=== PATIENT | male | born 1995 | race Caucasian/White ===

== ENCOUNTER 2023-12-14 08:53 | Emergency (ER) | payer OTHER, SELFPAY ==
--- NOTE | 2023-12-14 08:55 | ED.URI ---
HPI - URI/Sore Throat General Chief Complaint: Upper Respiratory Infection Stated Complaint: Congestion,Cough,Sore Throat Time Seen by Provider: 12/14/23 08:55 Source: patient Mode of arrival: ambulatory Limitations: no limitations History of Present Illness HPI Narrative: Rufino is a 27-year-old male patient presenting to the clinic today with complaints of congestion, cough, and sore throat x4 weeks. He reports he has had coughing congestion, headache, sinus pressure, and yellow nasal drainage for the past 4 weeks off and on. No fevers or chills. Denies any shortness of breath. MD elicited complaint: sore throat and nasal congestion Related Data Home Medications Medication Instructions Recorded Confirmed dextroamphetamine-amphetamine 15 15 mg BID 12/14/23 12/14/23 mg tablet Allergies Allergy/AdvReac Type Severity Reaction Status Date / Time No Known Allergies Allergy Unverified 06/25/13 16:45 Review of Systems Review of Systems: Pertinent positives per HPI. Patient denies any fever, chills, rash, headache, visual changes, dizziness,shortness of breath, chest pain, palpitations, nausea, vomiting, diarrhea, constipation, abdominal pain, or any urinary issues. PMFSH Comments At the time of my signature, I reviewed and agree with the nursing past medical, surgical, social, and family history. There is no relevant family history pertinent to the patient complaint. Exam Narrative: General: Well-developed, well nourished, in no apparent distress Head: Normocephalic, atraumatic Eyes: Pupils equally round and reactive to light bilaterally, EOM intact, sclera and conjunctive clear, no discharge, lids normal Ears: TMs intact and clear, ear canals clear, no drainage, grossly hearing normal. Nose: Nares patent, yellow nasal discharge, moderate inflammation, maxilla sinus tenderness. Mouth: Oral pharynx red without lesions or masses, good dentition, MMM. Postnasal drip Neck: Supple, trachea midline, no enlargement of anterior or posterior cervical nodes, no thyroid masses or goiter palpable. Cardio: Regular rate and rhythm, s1 and s2 normal, no murmur appreciated. Resp: Clear to auscultation bilaterally, no rhonchi, rales, wheezing or rubs Course Course Emergency Course: Portions of this record may have been created with voice recognition software. Level of Care: Express Care Visit Vital Signs Vital signs: Vital signs reviewed MDM - URI/Sore Throat MDM Narrative Medical decision making narrative: At the time of visit patient is resting comfortably on the exam table. Patient appears to be nontoxic. Plan: I suspect patient has acute rhinosinusitis. Prescription for prednisone and Augmentin was sent to the pharmacy. Supportive measures were discussed with the patient and they voiced understanding discharge instructions and agrees to treatment plan. Return precautions reviewed Differential Diagnosis Differential diagnosis: Likely upper respiratory infection, otitis media, sinusitis, viral infection, bronchitis, influenza, pharyngitis and other (COVID) Discharge Plan Discharge Clinical Impression: Acute rhinosinusitis Patient Disposition: Home, Self-Care Condition: Stable Instructions: Antibiotic Form, Rhinosinusitis (ED) Additional Instructions: Take prescription medications only as prescribed Increase fluids and stay well hydrated Tylenol/motrin for pain/fever Flonase and OTC antihistamines as directed Vicks vapor rub to open sinuses Sinus rinses for congestion Cepacol spray, cough drops, throat lozenges, warm tea with honey/lemon, gargle salt water to soothe throat BRAT diet for diarrhea Clear liquids x 24 hours then advance as tolerated for nausea/vomiting Go to the ED if you develop a worsening in your condition- high fever not controlled by Tylenol or Motrin, dehydration, weakness, lethargy, shortness of breath, or chest pain. Follow up with your PCP in
[2023-12-14 09:01] VITALS: BP 129/89; PULSE 74; RESP 16; TEMP 36.9; O2SAT 100
== END 2023-12-14 09:28 | disposition home or self-care (01) ==
LOC: EXPGOSH 08:58
PROVIDERS: Emergency Provider Nurse Practitioner Family; PCP Family Medicine
DX: J01.90 Acute sinusitis, unspecified (principal); F90.9 Attention-deficit hyperactivity disorder, unspecified type
CPT/HCPCS: 99213; G0463

== ENCOUNTER 2025-01-24 08:10 | Emergency (ER) | payer OTHER, SELFPAY ==
[2025-01-24 08:25] VITALS: BP 132/82; PULSE 79; RESP 16; TEMP 36.6; O2SAT 100
--- NOTE | 2025-01-24 08:40 | ED_ITS ---
HPI - General Adult General Chief complaint: Upper Respiratory Infection Stated complaint: Strep Symptoms/SOB Source: patient Mode of arrival: ambulatory Limitations: no limitations History of Present Illness HPI narrative: Patient presents for evaluation of sick symptoms for the last 4 days. Symptoms include sinus congestion, mucopurulent discharge from the nares, sore throat, fever, cough, and SOB. No chills, nausea, vomiting or diarrhea. He took tylenol for his symptoms. He does not smoke. No recent sick contacts to his knowledge. Related Data Home Medications ?Medication ?Instructions ?Recorded ?Confirmed ?Last Taken ?Type semaglutide (weight loss) 1.7 mg subcut 01/24/25 Unknown History mg/0.75 mL subcutaneous pen injector (Wegovy) sildenafil 100 mg tablet mg 01/24/25 Unknown History Allergies Allergy/AdvReac Type Severity Reaction Status Date / Time No Known Allergies Allergy Verified 01/24/25 08:28 Review of Systems Review of Systems: CONSTITUTIONAL: Reports fever. Denies chills, or sweats. EYES: Denies visual changes, redness, or discharge. ENT: Reports sinus congestion, mucopurulent discharge from nares and sore throat CARDIOVASCULAR: Denies chest pain, palpitations, or edema. RESPIRATORY: Reports cough and SOB GASTROINTESTINAL: Denies abdominal pain, nausea, vomiting, or diarrhea. GENITOURINARY: Denies dysuria or hematuria. SKIN: Denies rash or itching. MUSCULOSKELETAL: Denies back pain, joint pain, or myalgia. NEUROLOGIC: Denies headache, numbness, dizziness, or weakness. PSYCHIATRIC: Denies anxiety or depression. [facility] Past Medical History Medical History No pertinent past medical history Surgical History Surgical History No pertinent past surgical history Family History Family History (Updated 01/24/25 @ 08:54 by ALLAN Schwarz, DILIP) Mother Family history non-contributory Social History Social History Smoking status: Never smoker Substance use: never Gender identity (if verbalized by the patient): Male Spiritual care concerns: No Exam Narrative: GENERAL: Well-appearing, well-nourished, and in no acute distress. HEAD: Normocephalic, atraumatic. EYES: PERRLA and EOMI. ENT: Nares clear, no rhinorrhea or epistaxis. Mucous membranes moist. Oropharynx without tonsillar hypertrophy exudate or other lesions. Bilateral TMs pearly dumas nonbulging NECK: Supple. No adenopathy or masses. No carotid bruits or JVD CHEST: Clear to auscultation. No respiratory distress. No wheezes rales or rhonchi HEART: Regular rate and rhythm. No murmur heard. Normal peripheral pulses. ABDOMEN: Soft, nontender, nondistended, normal active bowel sounds. EXTREMITIES: Normal range of motion. No edema. SKIN: Warm, dry, no rash. NEURO: No focal deficits. Alert and oriented x3. PSYCH: Normal mood and affect. Course Course Emergency Course: this is a 29-year-old male who presented for evaluation of sick symptoms. COVID, influenza, strep were all negative. He meets criteria for bacterial sinusitis based upon presence of mucopurulent discharge and fever. Will dc with augmentin. Follow-up with primary provider. Go to the ER for worsening symptoms. Pt in agreement with plan of care. Level of Care: Express Care Visit Vital Signs Vital signs: Vital Signs Temperature 36.6 C 01/24/25 08:25 Pulse Rate 79 01/24/25 08:25 Respiratory Rate 16 01/24/25 08:25 Blood Pressure 132/82 01/24/25 08:25 Pulse Oximetry 100 01/24/25 08:25 Temperature 36.6 C 01/24/25 08:25 Pulse Rate 79 01/24/25 08:25 Respiratory Rate 16 01/24/25 08:25 Blood Pressure 132/82 01/24/25 08:25 Pulse Oximetry 100 01/24/25 08:25 Medical Decision Making Vital Signs Vital Signs: Vital Signs Temperature 36.6 C 01/24/25 08:25 Pulse Rate 79 01/24/25 08:25 Respiratory Rate 16 01/24/25 08:25 Blood Pressure 132/82 01/24/25 08:25 Pulse Oximetry 100 01/24/25 08:25 Temperature 36.6 C 01/24/25 08:25 Pulse Rate 79 01/24/25 08:25 Respiratory Rate 16 01/24/25 08:25 Blood Pressure 132/82 01/24/25 08:25 Pulse Oximetry 100 01/24/25 08:25 Lab Data Labs: Lab Results 01/24/25 Range/Units 08:42 POC Influenza A Ag Negative (Negative) POC Influenza B Ag Negative (Negative) POC SARS CoV-2 Ag Negative (Negative) POC Grp A Strep Screen Negative (Negative) Discharge Plan Discharge Clinical Impression: Sinusitis Patient Disposition: Home Condition: Stable Instructions: Antibiotic Form, Sinusitis (ED) Patient Language: Macedonian Prescriptions: New amoxicillin-pot clavulanate 875-125 mg tablet 1 tablet PO Q12H Qty: 20 0RF No Action sildenafil 100 mg tablet Wegovy 1.7 mg/0.75 mL pen injector SUBCUT Follow-up/Referrals: Isidra Govea MD [Physician] - Time of Disposition: 08:45
[2025-01-24 08:44] LABS: EDCOVIDSCREEN Negative (Negative); EDINFLUASCREEN Negative (Negative); EDINFLUBSCREEN Negative (Negative); EDSTREPNEGPOS1 Negative (Negative)
== END 2025-01-24 08:46 | disposition home or self-care (01) ==
PROVIDERS: Emergency Provider Nurse Practitioner
DX: J32.9 Chronic sinusitis, unspecified (principal); Z20.822 Contact with and (suspected) exposure to COVID-19
CPT/HCPCS: 87081; 87426; 87804; 87880; 99213; G0463